=== PATIENT | male | born 2000 | race Hispanic/Latino ===

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

== ENCOUNTER 2022-03-24 10:31 | Outpatient (CLI) | payer OTHER, SELFPAY ==
--- NOTE | ~2022-03-24 | US_ITS ---
US scrotum doppler INDICATION: Sebaceous cysts. TECHNIQUE: Testicular sonogram utilizing grayscale and color Doppler FINDINGS: The testes are normal in size and appearance. No focal lesions are seen. The right testes measures 5 x 3 x 2.4 cm centimeters, and the left testis measures 4.8 x 3 x 2 cm cm. There is normal vascular flow to both testes. There is a 5 mm right epididymal cyst. There is a left extratesticular calcification measuring 7 mm, consistent with a scrotolith. IMPRESSION: 1. Left extratesticular calcification measuring 7 mm, consistent with a benign scrotolith, correspon ding to the palpable abnormality Reviewed, dictated and finalized at location B. IMPRESSION: 1. Left extratesticular calcification measuring 7 mm, consistent with a benign scrotolith, corresponding to the palpable abnormality
== END 2022-03-24 10:32 | disposition home or self-care (01) ==
PROVIDERS: PCP Registered Nurse; Visit Provider Physician Assistant
DX: L72.3 Sebaceous cyst (principal)
CPT/HCPCS: 76870; 93976